=== PATIENT | female | born 1970 | race African-American/Black ===

== ENCOUNTER 2021-05-19 08:17 | Emergency (ER) | payer MEDICARE, OTHER ==
[2021-05-19] MEDS ORDERED: HYDROcodone/Acetaminophen 10/325 mg Tablet ONE (08:43)
== END 2021-05-19 08:45 | disposition home or self-care (01) ==
LOC: BURERS 08:17
DX: K02.9 Dental caries, unspecified (principal)
CPT/HCPCS: 99282

== ENCOUNTER 2021-08-29 12:15 | Emergency (ER) | payer MEDICARE, OTHER ==
[2021-08-29] MEDS ORDERED: predniSONE 20 MG TAB ONE (13:15)
== END 2021-08-29 13:31 | disposition home or self-care (01) ==
LOC: BURERS 12:15
DX: M77.11 Lateral epicondylitis, right elbow (principal); I10 Essential (primary) hypertension; F17.210 Nicotine dependence, cigarettes, uncomplicated
CPT/HCPCS: 99283; J7512

== ENCOUNTER 2022-05-14 18:19 | Emergency (ER) | payer MEDICARE, OTHER ==
[2022-05-14] MEDS ORDERED: Morphine 2 MG/ML VIAL ONE (19:10)
[2022-05-14] MEDS ORDERED: Morphine 4 MG/ML VIAL ONE (19:11)
[2022-05-14] MEDS ORDERED: predniSONE 20 MG TAB ONE (19:12)
== END 2022-05-14 19:07 | disposition home or self-care (01) ==
LOC: BURERS 18:19
DX: S39.012A Strain of muscle, fascia and tendon of lower back, initial encounter (principal); F17.210 Nicotine dependence, cigarettes, uncomplicated; X58.XXXA Exposure to other specified factors, initial encounter
CPT/HCPCS: 96372; 99283; J2270; J2272; J7512

== ENCOUNTER 2022-06-13 19:24 | Emergency (ER) | payer OTHER ==
[2022-06-13] MEDS ORDERED: traMADol HCl 50 MG TAB ONE (20:06)
== END 2022-06-13 20:10 | disposition home or self-care (01) ==
LOC: BURERS 19:24
DX: S62.316A Displaced fracture of base of fifth metacarpal bone, right hand, initial encounter for closed fracture (principal); I10 Essential (primary) hypertension; F17.210 Nicotine dependence, cigarettes, uncomplicated; X50.1XXA Overexertion from prolonged static or awkward postures, initial encounter

== ENCOUNTER 2024-10-23 14:04 | Emergency (ER) | payer OTHER, MEDICAID ==
[2024-10-23] MEDS ORDERED: Lidocaine/Transparent Dressing 1 EACH KIT ONE (14:22)
[2024-10-23] MEDS ORDERED: Acetaminophen 500 MG TAB ONE (14:49)
[2024-10-23] MEDS ORDERED: Boostrix 0.5 ML (Tdap) VIAL (>/=7 yrs of age) ONE (14:49)
== END 2024-10-23 15:13 | disposition home or self-care (01) ==
LOC: BURERS 14:04
DX: S01.511A Laceration without foreign body of lip, initial encounter (principal); S13.4XXA Sprain of ligaments of cervical spine, initial encounter; I12.9 Hypertensive chronic kidney disease with stage 1 through stage 4 chronic kidney disease, or unspecified chronic kidney disease; N18.30 Chronic kidney disease, stage 3 unspecified; F17.210 Nicotine dependence, cigarettes, uncomplicated; W22.8XXA Striking against or struck by other objects, initial encounter; Z23 Encounter for immunization; Z79.899 Other long term (current) drug therapy
CPT/HCPCS: 12011; 70450; 72125; 90471; 90715